=== PATIENT | female | born 1965 | race Caucasian/White ===

== ENCOUNTER 2017-07-16 21:36 | Emergency (ER) | payer OTHER ==
[~2017-07-16] VITALS: Ht 170.2 cm; Wt 92.8 kg
[~2017-07-16 21:36] MED LIST: LORT5TAB PO; Z.0.NO CURRENT MEDS
[2017-07-16 21:45] VITALS: BP 178/87; PULSE 72; RESP 20; TEMP 98.3; O2SAT 98
[2017-07-16] MEDS ORDERED: SODIUM CHLOR 0.9% 1000 ML INJ 1,000 ML IV SCH (22:14)
[2017-07-16] MEDS ORDERED: SODIUM CHLORIDE 0.9% FLUSH 10 ML FLUSH IV FLUSH PRN (22:15)
--- NOTE | 2017-07-16 22:29 | PD ---
HPI Chief Complaint: Flank/Kidney Pain Time Seen by Provider: 22:02 Travel History International Travel<30 days: No Contact w/Intl Traveler<30days: No Traveled to known affect area: No History of Present Illness HPI 52-year-old female here for evaluation of left flank pain. The patient reports experiencing left flank pain yesterday which resolved with Advil. The pain returned again today at around 5:00 PM and has been constant since then, for 10 , nonradiating, sharp in nature. Patient reports history of kidney stones several years ago and states that the pain feels similar. She denies fevers or chills. No nausea or vomiting. No hematuria or dysuria. PFSH Past Medical History Diminished Hearing: No Kidney Stones: Yes (8 YEARS AGO) ?: Not Social History Alcohol Use: Yes (1-2 mo) Tobacco Use: No Substance Use: No Allergies-Medications (Allergen,Severity, Reaction): Coded Allergies: No Known Allergies (Verified Adverse Reaction, Unknown, 07/16/17) Reported Meds & Prescriptions Reported Meds & Active Scripts Active Lortab 5/500 (Acetaminophen/Hydrocodone Bitart) 5 Mg/500 Mg Tab 1 Tab PO Q4HPRN FOR PAIN Reported No Current Meds (Miscellaneous Medication) Misc 0 Review of Systems Except as stated in HPI: all other systems reviewed are Neg Physical Exam Narrative GENERAL: Well-developed, well-nourished, comfortable, no apparent distress. SKIN: Focused skin assessment warm/dry. No rash. HEAD: Atraumatic. Normocephalic. EYES: Pupils equal and round. No scleral icterus. No injection or drainage. ENT: Mucous membranes pink and moist. NECK: Trachea midline. No JVD. CARDIOVASCULAR: Regular rate and rhythm. RESPIRATORY: No accessory muscle use. Clear to auscultation. Breath sounds equal bilaterally. GASTROINTESTINAL: Abdomen soft, non-tender, nondistended. MUSCULOSKELETAL: No obvious deformities. No clubbing. No cyanosis. No edema. No CVA tenderness. No midline vertebral step-off or tenderness. NEUROLOGICAL: Awake and alert. No obvious cranial nerve deficits. Motor grossly within normal limits. Normal speech. PSYCHIATRIC: Appropriate mood and affect; insight and judgment normal. Data Data Last Documented VS Vital Signs Date Time Temp Pulse Resp B/P (MAP) Pulse Ox O2 Delivery O2 Flow Rate FiO2 07/16/17 21:45 98.3 72 20 178/87 (117) 98 Orders Orders Complete Blood Count With Diff (07/16/17 22:14) Comprehensive Metabolic Panel (07/16/17 22:14) Lipase (07/16/17 22:14) Prothrombin Time / Inr (Pt) (07/16/17 22:14) Act Partial Throm Time (Ptt) (07/16/17 22:14) Urinalysis - C+S If Indicated (07/16/17 22:14) Ct Abd/Pel W/O Iv Contrast (07/16/17 22:14) Iv Access Insert/Monitor (07/16/17 22:14) Ecg Monitoring (07/16/17 22:14) Oximetry (07/16/17 22:14) Sodium Chlor 0.9% 1000 Ml Inj (Ns 1000 M (07/16/17 22:14) Sodium Chloride 0.9% Flush (Ns Flush) (07/16/17 22:15) Ed Urine Pregnancytest Poc (07/16/17 22:17) Cath For Specimen (07/16/17 22:44) Tamsulosin (Flomax) (07/16/17 23:00) Ketorolac Inj (Toradol Inj) (07/16/17 23:00) Urine Culture (07/16/17 23:00) Ceftriaxone Inj (Rocephin Inj) (07/16/17 23:30) Labs Laboratory Tests Test 07/16/17 22:20 07/16/17 23:00 White Blood Count 14.7 TH/MM3 Red Blood Count 4.70 MIL/MM3 Hemoglobin 13.1 GM/DL Hematocrit 39.2 % Mean Corpuscular Volume 83.2 FL Mean Corpuscular Hemoglobin 27.7 PG Mean Corpuscular Hemoglobin Concent 33.3 % Red Cell Distribution Width 12.0 % Platelet Count 356 TH/MM3 Mean Platelet Volume 7.6 FL Neutrophils (%) (Auto) 80.5 % Lymphocytes (%) (Auto) 11.4 % Monocytes (%) (Auto) 4.6 % Eosinophils (%) (Auto) 0.7 % Basophils (%) (Auto) 2.8 % Neutrophils # (Auto) 11.8 TH/MM3 Lymphocytes # (Auto) 1.7 TH/MM3 Monocytes # (Auto) 0.7 TH/MM3 Eosinophils # (Auto) 0.1 TH/MM3 Basophils # (Auto) 0.4 TH/MM3 CBC Comment DIFF FINAL Differential Comment Prothrombin Time 10.7 SEC Prothromb Time International Ratio 1.1 RATIO Activated Partial Thromboplast Time 25.7 SEC Blood Urea Nitrogen 18 MG/DL Creatinine 1.10 MG/DL Random Glucose 117 MG/DL Total Protein 7.9 GM/DL Albumin 3.8 GM/DL Calcium Level 8.9 MG/DL Alkaline Phosphatase 82 U/L Aspartate Amino Transf (AST/SGOT) 33 U/L Alanine Aminotransferase (ALT/SGPT) 51 U/L Total Bilirubin 0.5 MG/DL Sodium Level 137 MEQ/L Potassium Level 3.8 MEQ/L Chloride Level 104 MEQ/L Carbon Dioxide Level 27.8 MEQ/L Anion Gap 5 MEQ/L Estimat Glomerular Filtration Rate 52 ML/MIN Lipase 175 U/L Urine Color YELLOW Urine Turbidity CLEAR Urine pH 6.0 Urine Specific [place] 1.011 Urine Protein NEG mg/dL Urine Glucose (UA) NEG mg/dL Urine Ketones TRACE mg/dL Urine Occult Blood MOD Urine Nitrite POS Urine Bilirubin NEG Urine Leukocyte Esterase MOD Urine RBC 0-2 /hpf Urine WBC 6-8 /hpf Urine Squamous Epithelial Cells 6-8 /hpf Urine Bacteria FEW /hpf Microscopic Urinalysis Comment CULTURE INDICATED MDM Medical Decision Making Medical Screen Exam Complete: Yes Emergency Medical Condition: Yes Differential Diagnosis Nephrolithiasis, ureterolithiasis, pyelonephritis, musculoskeletal pain, AAA/ dissection less likely Narrative Course Vital signs show heart rate 72, blood pressure 178/87, pulse ox 98% on room air , oral temp of 98.3F. CBC: WBC 14.7, hemoglobin 13.1, hematocrit 39.2, platelets 356, neutrophils 80%. CMP is remarkable for creatinine 1.1, GFR 52, otherwise unremarkable. Lipase is 175. UA: Trace ketones, moderate occult blood, positive nitrites, moderate leukocyte esterase, 6-8 WBCs, 6-8 epithelial cells, few bacteria CT abdomen pelvis: Moderate hydronephrosis of the left kidney due to an approximate 2-3 mm left proximal ureteral stone. Patient was made aware of all findings per she is resting comfortably. She is overall very well-appearing. Her vital signs are remarkable for slight hypertension, otherwise within normal limits. She is hemodynamically stable and is not displaying any signs or symptoms of sepsis. She is also been pain- free in the emergency department. She was given a dose of Flomax here in the emergency department as well as a dose of 1 g of IV Rocephin. Plan is to discharge her home with a prescription for Flomax, pain medication, antiemetics , and antibiotics. She was advised to follow-up with a urologist this week. She will also be discharged home with a urine strainer. She was informed on when to return to the emergency department. She verbalizes understanding and agreement with plan. Diagnosis Primary Impression: Ureterolithiasis Referrals: Alonso Peoples MD 3 days Urologist Additional Instructions: Follow-up with urologist Dr. Peoples or a urologist of your choice this week. Return to the emergency department for worsening symptoms or any other concerns as discussed. Scripts Hydrocodone-Acetaminophen (Hydrocodone-Acetaminophen) 5-325 mg Tab 1 TAB PO Q6H Y for PAIN, #15 TAB 0 Refills Prov: Cooper Yates MD 07/16/17 Sulfamethoxazole-Trimethoprim (Bactrim DS) 800-160 Mg Tab 1 TAB PO BID for Infection, #14 TAB 0 Refills Prov: Cooper Yates MD 07/16/17 Ondansetron Odt (Zofran Odt) 4 Mg Tab 4 MG SL Q8HR Y for Nausea/Vomiting, #20 TAB 0 Refills Prov: Cooper Yates MD 07/16/17 Tamsulosin (Flomax) 0.4 Mg Cap 0.4 MG PO HS for Manage Prostate Problems, #15 CAP 0 Refills Prov: Cooper Yates MD 07/16/17 Disposition: 01 DISCHARGE HOME Condition: Stable Cooper Yates MD Jul 16, 2017 22:29
[2017-07-16 22:38] LABS: AUTOMATED NEUTROPHIL # 11.8 TH/MM3 (1.8-7.7); BASOPHIL # 0.4 TH/MM3 (0-0.2); BASOPHIL % 2.8 % (0.0-2.0); EOSINOPHIL # 0.1 TH/MM3 (0-0.4); EOSINOPHIL % 0.7 % (0.0-4.0); HEMATOCRIT 39.2 % (35.0-46.0); HEMOGLOBIN 13.1 GM/DL (11.6-15.3); LYMPH % 11.4 % (9.0-44.0); LYMPHOCYTE # 1.7 TH/MM3 (1.0-4.8); MEAN CELL VOLUME 83.2 FL (80.0-100.0); MEAN CORPUSCULAR HEMOGLOBIN 27.7 PG (27.0-34.0); MEAN CORPUSCULAR HGB CONC 33.3 % (32.0-36.0); MEAN PLATELET VOLUME 7.6 FL (7.0-11.0); MONO % 4.6 % (0.0-8.0); MONOCYTE # 0.7 TH/MM3 (0-0.9); NEUT % 80.5 % (16.0-70.0); PLATELET COUNT 356 TH/MM3 (150-450); WHITE BLOOD COUNT 14.7 TH/MM3 (4.0-11.0)
--- NOTE | 2017-07-16 22:41 | RADRPT ---
EXAM DATE/TIME: 07/16/2017 22:21 [facility] COMPARISON: No previous studies available for comparison. INDICATIONS : Left flank pain. ORAL CONTRAST: No oral contrast ingested. RADIATION DOSE: 22.17 CTDIvol (mGy) ; High dose protocol MEDICAL HISTORY : None SURGICAL HISTORY : None. ENCOUNTER: Initial ACUITY: 1 day PAIN SCALE: 7/10 LOCATION: Left flank TECHNIQUE: Volumetric scanning of the abdomen and pelvis was performed. Using automated exposure control and adjustment of the mA and/or kV according to patient size, radiation dose was kept as low as reasonably achievable to obtain optimal diagnostic quality images. DICOM format image data is av ailable electronically for review and comparison. FINDINGS: CT Abdomen: The visualized liver, spleen, pancreas, right kidney, adrenals are unremarkable. Approxim ate 2-3 mm stone is present in the left proximal ureter past the UPJ causing moderate hydronephrosis. There is no evidence for any appreciable pathological adenopathy, free fluid, or bowel obstruction. CT pelvis: There is no evidence for mass, abscess formation, or any significant adenopathy within the pelvis. CONCLUSION: Moderate hydronephrosis left kidney due to an approximate 2-3 mm left proximal ureter al stone. Emy Sierra MD on July 16, 2017 at 22:37 Board Certified Radiologist. This report was verified electronically.
[2017-07-16 22:43] LABS: CHLORIDE 104 MEQ/L (98-107); SODIUM (NA) 137 MEQ/L (136-145)
[2017-07-16 22:46] LABS: CALCIUM 8.9 MG/DL (8.5-10.1)
[2017-07-16 22:47] LABS: ALBUMIN 3.8 GM/DL (3.4-5.0); BICARBONATE 27.8 MEQ/L (21.0-32.0); BLOOD UREA NITROGEN 18 MG/DL (7-18); GLUCOSE,RANDOM 117 MG/DL (74-106)
[2017-07-16 22:49] LABS: INTERNATIONAL NORMALIZED RATIO 1.1 RATIO; PROTHROMBIN TIME - PATIENT 10.7 SEC (9.8-11.6)
[2017-07-16 22:50] LABS: ALT (GPT) 51 U/L (10-53); AST (GOT) 33 U/L (15-37); GLOMERULAR FILTRATION RATE 52 ML/MIN (>89)
[2017-07-16 22:51] LABS: TOTAL BILIRUBIN ADULT 0.5 MG/DL (0.2-1.0); TOTAL PROTEIN 7.9 GM/DL (6.4-8.2)
[2017-07-16 22:53] LABS: ALKALINE PHOSPHATASE 82 U/L (45-117)
[2017-07-16] MEDS ORDERED: TAMSULOSIN HCL 0.4 MG CAP PO ONE (23:00)
[2017-07-16] MEDS ORDERED: KETOROLAC TROMETHAMINE 30 MG/ML (IVP) VIAL IV PUSH ONE (23:00)
[2017-07-16 23:14] LABS: BILIRUBIN, URINE NEG (NEG); BLOOD, URINE MOD (NEG); GLUCOSE,URINE NEG (NEG); KETONE, URINE TRACE mg/dL (NEG); NITRITE,URINE POS (NEG); URINE LEUKOCYTE ESTERASE MOD (NEG)
[2017-07-16 23:16] LABS: URINE COLOR YELLOW (YELLW/STRAW)
[2017-07-16 23:19] LABS: BACTERIA, URINE FEW /hpf; RBC, URINE 0-2 /hpf (0-3)
[2017-07-16] MEDS ORDERED: cefTRIAXone INJ 1,000 MG in SODIUM CHLORIDE 0.9% INJ 100 ML IV ONE (23:30)
[2017-07-16] MEDS ORDERED: TAMS5CAP PO (23:33)
[2017-07-16] MEDS ORDERED: HYDR-3516 PO (23:33)
[2017-07-16] MEDS ORDERED: BACT800T5 PO (23:33)
[2017-07-16] MEDS ORDERED: ZOFR4TAB3 SL (23:33)
[2017-07-17 00:31] VITALS: BP 170/82; TEMP 98.4
== END 2017-07-17 00:36 | disposition home or self-care (01) ==
LOC: PHED 21:36
DX: N20.1 Calculus of ureter (principal); R82.99 Other abnormal findings in urine
CPT/HCPCS: 74176; 80053; 81001; 83690; 84703; 85025; 85610; 85730; 87086; 96361; 96365; 96375; 99284; J0696; J1885; J7030